=== PATIENT | male | born 1950 | race Caucasian/White ===

== ENCOUNTER 2021-04-21 19:27 | Emergency (ER) | payer BC ==
[~2021-04-21] VITALS: Ht 177.8 cm; Wt 8.2 kg
[2021-04-21 20:04] LABS: BASO # 0.1 10^3/uL (0.0-0.2); BASO % 0.9 % (0.0-1.0); EOS # 0.2 10^3/uL (0.0-0.5); EOS % 1.7 % (0.0-3.0); HEMATOCRIT 41.2 % (42.0-52.0); HEMOGLOBIN 14.7 g/dl (13.5-17.5); LYMPH # 2.9 10^3/uL (1.5-5.0); LYMPH % 31.9 % (24.0-44.0); MEAN CORPUSCULAR HEMOGLOBIN 31.6 pg (27.0-33.0); MEAN CORPUSCULAR HGB CONC 35.7 g/dl (32.0-36.5); MEAN CORPUSCULAR VOLUME 88.6 fl (80.0-96.0); MONO # 0.8 10^3/uL (0.0-0.8); MONO % 9.4 % (2.0-8.0); NEUTROPHILS % 55.7 % (36.0-66.0); PLATELET COUNT, AUTOMATED 113 10^3/uL (150-450); RED BLOOD COUNT 4.65 10^6/uL (4.30-6.10); WHITE BLOOD COUNT 8.9 10^3/uL (4.0-10.0)
[2021-04-21] MEDS ORDERED: NITR0.4S14 (20:21)
[2021-04-21] MEDS ORDERED: LEVO25TA5 (20:21)
[2021-04-21] MEDS ORDERED: LISI20TA33 (20:21)
[2021-04-21] MEDS ORDERED: IMBR1CAP (20:21)
[2021-04-21] MEDS ORDERED: ELIQ2.5T (20:21)
[2021-04-21] MEDS ORDERED: CLOP75TA2 (20:21)
[2021-04-21] MEDS ORDERED: AMLO1TAB24 (20:21)
[2021-04-21] MEDS ORDERED: CARV12.5 (20:21)
[2021-04-21] MEDS ORDERED: SILD50TA2 (20:21)
[2021-04-21 20:33] LABS: BLOOD UREA NITROGEN 9 MG/DL (7-18); CALCIUM LEVEL 8.4 MG/DL (8.8-10.2); CARBON DIOXIDE LEVEL 29 MEQ/L (21-32); CHLORIDE LEVEL 106 MEQ/L (98-107); CPK CREATINE PHOSPHOKINASE 70 U/L (39-308); CREATININE FOR GFR 0.88 MG/DL (0.70-1.30); GLOMERULAR FILTRATION RATE > 60.0 (>49); GLUCOSE, FASTING 95 MG/DL (70-100); MB/CK RELATIVE INDEX 5.71 (< OR =4); POTASSIUM SERUM 3.7 MEQ/L (3.5-5.1); SODIUM LEVEL 140 MEQ/L (136-145); TROPONIN I < 0.02 NG/ML (< 0.10)
--- NOTE | 2021-04-21 21:21 | REPVR ---
PROCEDURE INFORMATION: Exam: XR Chest Exam date and time: 04/21/2021 8:20 PM Age: 70 years old Clinical indication: Pain; Other: Unspecified; Additional info: Chest pain TECHNIQUE: Imaging protocol: XR of the chest. Views: 1 view. COMPARISON: No relevant prior studies available. FINDINGS: Lungs: Clear. No consolidation. Pleural spaces: No pleural effusion. No pneumothorax. Heart/Mediastinum: Unremarkable. No cardiomegaly. Bones/joints: Unremarkable. IMPRESSION: No acute findings. Electronically signed by: Herbert Estevez On 04/21/2021 21:20:43 PM
[2021-04-22 00:48] LABS: CK-MB VALUE MASS 2.9 NG/ML (<3.6); CPK CREATINE PHOSPHOKINASE 54 U/L (39-308); MB/CK RELATIVE INDEX 5.37 (< OR =4); TROPONIN I < 0.02 NG/ML (< 0.10)
[2021-04-22 01:15] VITALS: BP 129/77
--- NOTE | 2021-04-23 06:47 | ECGEPIP ---
[facility] - ED Test Date: 2021-04-21 Pat Name: JERSON BROWNLEE Department: Room: - Gender: Male [employer]: KG : 1950 Requested By: QUENTIN Carrero Order Number: [id number] Reading MD: Cain Abdalla Measurements Intervals [place] Rate: 64 P: [place]: QRS: 81 QRSD: 88 T: 63 QT: 388 QTc: 400 Interpretive Statements Atrial fibrillation NO PRIORS FOR COMPARISON Electronically Signed on 04-23-2021 6:47:36 EDT by Cain Abdalla
--- NOTE | 2021-04-23 06:55 | ECGEPIP ---
[facility] - ED Test Date: 2021-04-21 Pat Name: JERSON BROWNLEE Department: Room: - Gender: Male Exhauster: KG : 1950 Requested By: FERNANDA Steele Order Number: [id number] Reading MD: Cain Abdalla Measurements Intervals [place] Rate: 53 P: [place]: QRS: 88 QRSD: 96 T: 74 QT: 416 QTc: 390 Interpretive Statements Atrial fibrillation with slow ventricular response RATE CHANGE COMPARED TO PRIOR ON SAME DATE Electronically Signed on 04-23-2021 6:54:38 EDT by Cain Abdalla
== END 2021-04-22 01:26 | disposition home or self-care (01) ==
LOC: M ED 19:27
DX: R07.89 Other chest pain (principal); I48.91 Unspecified atrial fibrillation; I25.10 Atherosclerotic heart disease of native coronary artery without angina pectoris; I10 Essential (primary) hypertension; E03.9 Hypothyroidism, unspecified; Z95.5 Presence of coronary angioplasty implant and graft; Z88.8 Allergy status to other drugs, medicaments and biological substances